=== PATIENT | male | born 1960 | race Two or more races ===

== ENCOUNTER 2017-05-20 01:11 | Emergency (ER) | payer MEDICARE, MEDICAID ==
[~2017-05-20] VITALS: Ht 172.7 cm; Wt 81.6 kg
[~2017-05-20 01:11] MED LIST: ALPR0.254 PO; ALPR0.5T PO; CAR125T OR; CEPH500T PO; DILT360C24 PO; FER325T PO; FURO20TA3 PO; HYDR50TA15 PO; NIFE60TA59 PO; SODB650T PO
[2017-05-20] MEDS ORDERED: DEXTROSE (50%) 50ML SYRG IV ONE (01:32)
[2017-05-20] MEDS ORDERED: EPINEPHrine HCL 1 MG/10 ML SYRG IV ONE (01:32)
[2017-05-20] MEDS ORDERED: SODIUM BICARBONATE 8.4% INJ 50ML SYRINGE IV ONE (01:32)
== END 2017-05-20 02:57 | disposition expired ==
LOC: ER 01:31
DX: I46.9 Cardiac arrest, cause unspecified (principal); I13.2 Hypertensive heart and chronic kidney disease with heart failure and with stage 5 chronic kidney disease, or end stage renal disease; N18.6 End stage renal disease; E11.22 Type 2 diabetes mellitus with diabetic chronic kidney disease; M10.9 Gout, unspecified; I50.9 Heart failure, unspecified
CPT/HCPCS: 92950; 99285; J0171; J7042